=== PATIENT | male | born 1975 | race Caucasian/White ===

== ENCOUNTER 2024-03-23 17:50 | Emergency (ER) | payer OTHER ==
[2024-03-23 18:14] VITALS: PULSE 78; RESP 18; TEMP 97.8; BMI 24.1
[2024-03-23 18:31] LABS: HEMOGLOBIN 14.5 G/dL (11.7-16.9); MCH 30.1 pg (25.7-33.7); MCHC 33.8 g/dl (32.0-35.9); PLATELET COUNT 157.4 10^3/uL (134-434); RBC 4.83 10^6/uL (4.00-5.60); RDW 13.7 % (11.9-15.9); WHITE BLOOD COUNT 6.4 10^3/uL (4.0-10.8)
[2024-03-23 18:43] LABS: ALBUMIN 4.2 g/dl (3.4-5.0); ALK PHOS 44 U/L (45-117); ANION GAP 8 mmol/L (4-13); BILIRUBIN,TOTAL 0.5 mg/dl (0.2-1); CHLORIDE 102 mmol/L (98-107); CO2 27 mmol/L (21-32); CREATININE 0.9 mg/dl (0.6-1.3); GLUCOSE,RANDOM 179 mg/dl (74-106); POTASSIUM 3.4 mmol/L (3.5-5.1); SGOT/AST 20 U/L (15-37); SGPT/ALT 21 U/L (7-52); SODIUM 137 mmol/L (136-145)
[2024-03-23 19:04] VITALS: BP 130/81
[2024-03-23 19:07] LABS: PLATELET ESTIMATE ADEQUATE
== END 2024-03-23 19:05 | disposition home or self-care (01) ==
LOC: FER 17:50
DX: R50.9 Fever, unspecified (principal); R41.0 Disorientation, unspecified; T43.295A Adverse effect of other antidepressants, initial encounter
CPT/HCPCS: 36415; 80053; 82550; 85025; 93005; 99283-25